=== PATIENT | male | born 1980 | race Caucasian/White ===

== ENCOUNTER 2018-03-11 10:47 | Emergency (ER) | payer OTHER ==
--- NOTE | 2018-03-11 13:04 | RAD REPORT ---
EXAM DESCRIPTION: RAD - Chest Single View - 03/11/2018 12:40 pm CLINICAL HISTORY: Chest pain. COMPARISON: 01/17/2012 FINDINGS: Portable technique limits examination quality. The lungs are grossly clear. The heart is normal in size. No displaced fractures. IMPRESSION: No acute intrathoracic process suspected.
[2018-03-11] MEDS ORDERED: FENTANYL CITR 100 MCG/2 ML ONE (13:16)
[2018-03-11] MEDS ORDERED: ONDANSETRON 4 MG/2 ML VIAL ONE (13:16)
[2018-03-11] MEDS ORDERED: NA CHLORIDE 0.9% 1,000 ML ONE (13:16)
[2018-03-11 13:27] LABS: Bicarbonate 27 mEq/L (21-31); Glucose Level 94 mg/dL (65-120); Lipase 25 U/L (22-51); Potassium 3.7 mEq/L (3.6-5.0); Sodium Level 134 mEq/L (135-145)
[2018-03-11 13:29] LABS: Protime INR 1.03
[2018-03-11 13:34] LABS: ALT/SGPT 19 IU/L (10-60); AST/SGOT 23 IU/L (10-42); Absolute Lymphocytes (CBC) 1.7 K/uL (0.7-4.9); Absolute Monocytes 0.4 K/uL (0.1-1.3); Absolute Neutrophil 2.4 K/uL (1.8-8.0); Albumin 4.5 g/dL (3.2-5.5); Alkaline Phosphatase 79 IU/L (42-121); BUN Blood Urea Nitrogen 7 mg/dL (6-20); Basophils % 0.8 % (0-1.3); Bilirubin Direct < 0.1 mg/dL (0-0.2); Bilirubin Total 0.7 mg/dL (0.3-1.2); Creatine Phosphokinase 128 IU/L (22-269); Eosinophils % 0.9 % (0-4.4); Hematocrit 44.3 % (39.6-49.0); Lymphocytes % 36.7 % (15.3-44.8); MCH 29.7 pg (27.0-35.0); MCV 87.1 fL (80-100); MPV 7.6 fL (7.6-11.3); Magnesium 1.8 mg/dL (1.8-2.5); Monocytes % 9.3 % (3.3-12.3); Protein, Total 7.4 g/dL (6.0-8.3); RBC Red Blood Cell Count 5.09 M/uL (4.33-5.43)
[2018-03-11 13:35] LABS: CKMB Creatine Kinase MB 1.1 ng/ml (0.3-4.0)
--- NOTE | 2018-03-11 14:34 | EKG ---
Test Date: 2018-03-11 Test Time: 12:45:29 Header Set Up Operator: MEERA MEASUREMENT RESULTS: Intervals: Rate: 64 MS: 142 QRSD: 86 QT: 394 QTc: 406 [place]: P: 47 MS: 142 QRS: 35 T: 42 INTERPRETIVE STATEMENTS: Normal sinus rhythm Normal ECG No previous ECG available for comparison Electronically Signed On 03-11-18 14:33:39 CDT by Chico Campuzano
--- NOTE | 2018-03-11 15:10 | RAD REPORT ---
EXAM DESCRIPTION: CTAbdomen Pelvis W Contrast - 03/11/2018 2:44 pm CLINICAL HISTORY: Abdominal pain. Left lower quadrant pain. COMPARISON: None. TECHNIQUE: Biphasic CT imaging of the abdomen and pelvis was performed with 100 ml non-ionic IV cont rast. All CT scans are performed using dose optimization technique as appropriate and may include automated exposure control or mA/KV adjustment according to patient size. FINDINGS: The lung bases are clear. The liver contains a 3.3 cm cyst. No aggressive liver lesion or biliary dilatation. The spleen, pancr eas and adrenal glands are normal. Punctate 2 mm calculus is present in the superior left kidney. Cor tical renal cyst is present on the left measuring 2 cm. No bowel obstruction, free air, free fluid or abscess. The appendix is normal. No evidence of signi ficant lymphadenopathy. No suspicious bony findings. IMPRESSION: No acute intra-abdominal or pelvic finding. Punctate 2 mm left renal calculus without hydronephrosis.
--- NOTE | 2018-03-11 15:33 | EDPHYS ---
Physician Documentation [facility] Name: Ibrahima Hatfield Age: 37 yrs Sex: Male : 1980 Arrival Date: 03/11/2018 Time: 10:48 Bed 16 Private MD: ED Physician Raul Marinelli HPI: 03/11 14:03 This 37 yrs old Male presents to ER via Ambulatory with complaints of braeden Abdominal Pain, Nausea/Vomiting/Diarrhea. 14:03 The patient presents to the emergency department with nausea, vomiting, diarrhea, braeden abdominal pain, of the right lower quadrant and left lower quadrant. Onset: The symptoms/episode began/occurred 3 day(s) ago. Possible causes: unknown. The symptoms are aggravated by nothing. The symptoms are alleviated by remaining still. Associated signs and symptoms: The patient has no apparent associated signs or symptoms. Severity of symptoms: At their worst the symptoms were moderate in the emergency department the symptoms are unchanged. The patient has experienced a previous episode. Historical: - Allergies: 11:03 No Known Allergies; ch - Home Meds: 11:03 sertraline oral oral [Active]; Prazosin Oral [Active]; etotack(anti inflamatory ch prescritpion unknown) [Active]; - PMHx: 11:03 ptsd; ch - PSHx: 11:03 cataracts; R knee; ch - Immunization history:: Adult Immunizations up to date. - Social history:: Smoking status: Patient uses tobacco products, smokes one pack cigarettes per day. Patient/guardian denies using alcohol, street drugs. ROS: 14:04 Constitutional: Negative for fever, chills, and weight loss, Eyes: Negative for injury, braeden pain, redness, and discharge, ENT: Negative for injury, pain, and discharge, Neck: Negative for injury, pain, and swelling, Cardiovascular: Negative for chest pain, palpitations, and edema, Respiratory: Negative for shortness of breath, cough, wheezing, and pleuritic chest pain, Back: Negative for injury and pain, : Negative for injury, bleeding, discharge, and swelling, MS/Extremity: Negative for injury and deformity, Skin: Negative for injury, rash, and discoloration, Neuro: Negative for headache, weakness, numbness, tingling, and seizure, Psych: Negative for depression, anxiety, suicide ideation, homicidal ideation, and hallucinations, Allergy/Immunology: Negative for hives, rash, and allergies, Endocrine: Negative for neck swelling, polydipsia, polyuria, polyphagia, and marked weight changes, Hematologic/Lymphatic: Negative for swollen nodes, abnormal bleeding, and unusual bruising. 14:04 Abdomen/GI: Positive for abdominal pain, nausea and vomiting, diarrhea. Exam: 14:04 Constitutional: This is a well developed, well nourished patient who is awake, alert, braeden and in no acute distress. Head/Face: Normocephalic, atraumatic. Eyes: Pupils equal round and reactive to light, extra-ocular motions intact. Lids and lashes normal. Conjunctiva and sclera are non-icteric and not injected. Cornea within normal limits. Periorbital areas with no swelling, redness, or edema. ENT: Nares patent. No nasal discharge, no septal abnormalities noted. Tympanic membranes are normal and external auditory canals are clear. Oropharynx with no redness, swelling, or masses, exudates, or evidence of obstruction, uvula midline. Mucous membranes moist. Neck: Trachea midline, no thyromegaly or masses palpated, and no cervical lymphadenopathy. Supple, full range of motion without nuchal rigidity, or vertebral point tenderness. No Meningismus. Chest/axilla: Normal chest wall appearance and motion. Nontender with no deformity. No lesions are appreciated. Cardiovascular: Regular rate and rhythm with a normal S1 and S2. No gallops, murmurs, or rubs. Normal PMI, no JVD. No pulse deficits. Respiratory: Lungs have equal breath sounds bilaterally, clear to auscultation and percussion. No rales, rhonchi or wheezes noted. No increased work of breathing, no retractions or nasal flaring. Back: No spinal tenderness. No costovertebral tenderness. Full range of motion. Male : Normal genitalia with no discharge or lesions. Skin: Warm, dry with normal turgor. Normal color with no rashes, no lesions, and no evidence of cellulitis. MS/ Extremity: Pulses equal, no cyanosis. Neurovascular intact. Full, normal range of motion. Neuro: Awake and alert, GCS 15, oriented to person, place, time, and situation. Cranial nerves II-XII grossly intact. Motor strength 5/5 in all extremities. Sensory grossly intact. Cerebellar exam normal. Normal gait. Psych: Awake, alert, with orientation to person, place and time. Behavior, mood, and affect are within normal limits. 14:04 Abdomen/GI: Inspection: abdomen appears normal, Bowel sounds: normal, Palpation: mild abdominal tenderness, moderate abdominal tenderness, in the right lower quadrant and left lower quadrant, Liver: no appreciated palpable abnormalities, Hernia: not appreciated. Vital Signs: 11:03 BP 117 / 86; Pulse 78; Resp 15; Temp 99; Pulse Ox 97% on R/A; Weight 85.28 kg; Height 6 ch ft. 0 in. (182.88 cm); Pain 7/10; 12:25 BP 118 / 76; Pulse 66; Resp 18; Pulse Ox 100% on R/A; rb1 13:55 BP 117 / 74; Pulse 58; Resp 14; Pulse Ox 97% on R/A; mh5 14:50 BP 114 / 76; Pulse 62; Resp 17; Pulse Ox 99% on R/A; rb1 15:10 BP 110 / 63; Pulse 61; Resp 19; Pulse Ox 99% on R/A; rb1 16:20 BP 104 / 62; Pulse 58; Resp 16; Pulse Ox 99% on R/A; mh5 17:14 BP 114 / 72; Pulse 61; Resp 16; Pulse Ox 99% on R/A; mh5 11:03 Body Mass Index 25.50 (85.28 kg, 182.88 cm) ch MDM: 12:17 Patient medically screened. [facility] 14:05 Data reviewed: vital signs, nurses notes, lab test result(s), EKG, radiologic studies. [facility] 03/11 12:25 Order name: Basic Metabolic Panel [facility] 03/11 12:25 Order name: BNP 03/11 12:25 Order name: CBC with Diff 03/11 12:25 Order name: Ckmb 03/11 12:25 Order name: CPK; Complete Time: 14:02 [facility] 03/11 12:25 Order name: LFT's; Complete Time: 14:02 [facility] 03/11 12:25 Order name: Magnesium; Complete Time: 14:02 [facility] 03/11 12:25 Order name: PT-INR; Complete Time: 14:02 [facility] 03/11 12:25 Order name: Ptt, Activated; Complete Time: 14:02 [facility] 03/11 12:25 Order name: Troponin (emerg Dept Use Only); Complete Time: 14:02 [facility] 03/11 12:25 Order name: Lipase; Complete Time: 14:02 [facility] 03/11 12:25 Order name: Urine Culture [facility] 03/11 12:26 Order name: Basic Metabolic Panel; Complete Time: 14:02 [facility] 03/11 12:26 Order name: BNP B-Type Natriuretic Peptide; Complete Time: 14:42 [facility] 03/11 12:25 Order name: XRAY Chest (1 view); Complete Time: 14:02 [facility] 03/11 12:25 Order name: EKG; Complete Time: 12:26 [facility] 03/11 12:25 Order name: Cardiac monitoring; Complete Time: 13:27 [facility] 03/11 12:25 Order name: EKG - Nurse/Tech; Complete Time: 18:10 [facility] 03/11 12:25 Order name: IV Saline Lock; Complete Time: 13:27 [facility] 03/11 12:25 Order name: Labs collected and sent; Complete Time: 13:27 [facility] 03/11 12:25 Order name: O2 Per Protocol; Complete Time: 13:27 [facility] 03/11 12:25 Order name: CT Abd/Pelvis - W/Contrast; Complete Time: 15:30 [facility] 03/11 12:26 Order name: CBC with Automated Diff; Complete Time: 14:02 [facility] 03/11 12:26 Order name: CKMB Creatine Kinase MB; Complete Time: 14:02 [facility] 03/11 14:08 Order name: Urine Dipstick--Ancillary (enter results) 03/11 12:25 Order name: O2 Sat Monitoring; Complete Time: 13:28 [facility] 03/11 12:25 Order name: Urine Dipstick-Ancillary (obtain specimen); Complete Time: 18:09 [facility] Administered Medications: 13:18 Drug: NS 0.9% 1000 ml Route: IV; Rate: 1 bolus; Site: left wrist; rb1 14:25 Follow up: IV Status: Completed infusion rb1 13:18 Drug: Zofran 4 mg Route: IVP; Site: left wrist; rb1 14:03 Follow up: Response: No adverse reaction; Nausea is decreased rb1 13:18 Drug: fentaNYL (PF) 25 mcg Route: IVP; Site: left wrist; rb1 14:03 Follow up: Response: No adverse reaction; Pain is decreased rb1 13:27 Not Given (Not available; provider notified. No new order at this time.): Pepcid 20 mg rb1 IVP once 14:21 Drug: Cipro 400 mg Volume: 200 ml; Route: IVPB; Infused Over: 60 mins; Site: left wrist;rb1 Disposition: 03/11/18 15:32 Discharged to Home. Impression: Abdominal tenderness, Vomiting. - Condition is Stable. - Discharge Instructions: Abdominal Pain, Adult, Food Choices to Help Relieve Diarrhea, Adult, Diarrhea, Kidney Stones, Nausea and Vomiting, Kidney Stones, [id number], Nausea and Vomiting, Ewru-jt-Lhgg, Abdominal Pain, Adult, Mrrb-gu-Noim, Diarrhea, Euon-qj-Gjlo. - Prescriptions for Bentyl 20 mg Oral Tablet - take 1 tablet by ORAL route every 6 hours As needed; 20 tablet. Pepcid 20 mg Oral Tablet - take 1 tablet by ORAL route every 12 hours for 10 days; 20 tablet. Zofran 4 mg Oral Tablet - take 1 tablet by ORAL route every 12 hours As needed; 20 tablet. - Medication Reconciliation Form, Thank You Letter, Antibiotic Education, Prescription Opioid Use, Work release form form. - Follow up: Private Physician; When: 2 - 3 days; Reason: Recheck today's complaints, Continuance of care, Re-evaluation by your physician. - Problem is new. - Symptoms have improved. Signatures: Dispatcher [employer] Luz Thompson, RN RN Raul Newman MD MD cha Barber, Rebecca, RN RN rb1
--- NOTE | 2018-03-11 15:33 | ER ---
Nurse's Notes [facility] Name: Ibrahima Hatfield Age: 37 yrs Sex: Male : 1980 Arrival Date: 03/11/2018 Time: 10:48 Bed 16 Private MD: Diagnosis: Abdominal tenderness;Vomiting Presentation: 03/11 10:59 Presenting complaint: Patient states: Saturday i started getting sick, NVD. I started ch getting pain in my LLQ abdomen, the pain radiates into my groin. last bm was yesterday. Transition of care: patient was not received from another setting of care. Onset of symptoms was March 10, 2018. Initial Sepsis Screen: Does the patient meet any 2 criteria? No. Patient's initial sepsis screen is negative. Does the patient have a suspected source of infection? No. Patient's initial sepsis screen is negative. Care prior to arrival: None. 10:59 Method Of Arrival: Ambulatory 10:59 Acuity: FELI 3 ch Triage Assessment: 11:03 General: Appears in no apparent distress. comfortable, Behavior is calm, cooperative, ch appropriate for age. Pain: Complains of pain in left lower quadrant Pain currently is 7 out of 10 on a pain scale. GI: Reports diarrhea, nausea, vomiting. Historical: - Allergies: 11:03 No Known Allergies; ch - Home Meds: 11:03 sertraline oral oral [Active]; Prazosin Oral [Active]; etotack(anti inflamatory ch prescritpion unknown) [Active]; - PMHx: 11:03 ptsd; ch - PSHx: 11:03 cataracts; R knee; ch - Immunization history:: Adult Immunizations up to date. - Social history:: Smoking status: Patient uses tobacco products, smokes one pack cigarettes per day. Patient/guardian denies using alcohol, street drugs. Screenin:20 Abuse screen: Denies threats or abuse. Nutritional screening: No deficits noted. rb1 Tuberculosis screening: No symptoms or risk factors identified. Fall Risk None identified. Assessment: 12:20 General: Appears uncomfortable, Behavior is calm, cooperative, Denies fever. Pain: rb1 Complains of pain in left lower quadrant Pain currently is 9 out of 10 on a pain scale. Pain began Saturday. Neuro: Level of Consciousness is awake, alert, obeys commands, Oriented to person, place, time, situation. Cardiovascular: Capillary refill < 3 seconds is brisk in bilateral fingers. Respiratory: Airway is patent Respiratory effort is even, unlabored, Respiratory pattern is regular, symmetrical. GI: Bowel sounds present X 4 quads. Abd is soft Abdomen is tender to palpation in left lower quadrant Reports diarrhea, nausea, vomiting. : No signs and/or symptoms were reported regarding the genitourinary system. Derm: Skin is pink, warm \T\ dry. Musculoskeletal: Range of motion: intact in all extremities. 12:59 Reassessment: Called CT to let them know pt. finished contrast. rb1 13:18 Reassessment: Patient appears in no apparent distress at this time. Patient and/or rb1 family updated on plan of care and expected duration. Pain level reassessed. Patient is alert, oriented x 3, equal unlabored respirations, skin warm/dry/pink. pain 8/10. 14:17 Reassessment: Patient appears in no apparent distress at this time. No changes from rb1 previously documented assessment. 15:15 Reassessment: Patient appears in no apparent distress at this time. Patient and/or rb1 family updated on plan of care and expected duration. Pain level reassessed. Patient is alert, oriented x 3, equal unlabored respirations, skin warm/dry/pink. 16:11 Reassessment: Patient appears in no apparent distress at this time. No changes from rb1 previously documented assessment. pt. is watching tv. call light is within reach. 17:09 Reassessment: Patient appears in no apparent distress at this time. Patient and/or rb1 family updated on plan of care and expected duration. Pain level reassessed. Patient is alert, oriented x 3, equal unlabored respirations, skin warm/dry/pink. Vital Signs: 11:03 BP 117 / 86; Pulse 78; Resp 15; Temp 99; Pulse Ox 97% on R/A; Weight 85.28 kg; Height 6 ch ft. 0 in. (182.88 cm); Pain 7/10; 12:25 BP 118 / 76; Pulse 66; Resp 18; Pulse Ox 100% on R/A; rb1 13:55 BP 117 / 74; Pulse 58; Resp 14; Pulse Ox 97% on R/A; mh5 14:50 BP 114 / 76; Pulse 62; Resp 17; Pulse Ox 99% on R/A; rb1 15:10 BP 110 / 63; Pulse 61; Resp 19; Pulse Ox 99% on R/A; rb1 16:20 BP 104 / 62; Pulse 58; Resp 16; Pulse Ox 99% on R/A; mh5 17:14 BP 114 / 72; Pulse 61; Resp 16; Pulse Ox 99% on R/A; mh5 11:03 Body Mass Index 25.50 (85.28 kg, 182.88 cm) ED Course: 10:48 Patient arrived in ED. sb2 11:01 Triage completed. ch 11:03 Arm band placed on left wrist. Patient placed in waiting room. ch 12:17 Raul Marinelli MD is Attending Physician. bra[place] 12:20 Patient has correct armband on for positive identification. Bed in low position. Call rb1 light in reach. Side rails up X 1. Pulse ox on. NIBP on. 12:39 X-ray completed. Portable x-ray completed in exam room. Patient tolerated procedure mh1 well. 12:40 XRAY Chest (1 view) In Process Unspecified. EDMS 12:52 EKG done, by monitor technician. reviewed by Raul Marinelli MD. dt2 12:59 Marielena Christensen, RN is Primary Nurse. rb1 13:00 Inserted saline lock: 18 gauge in left forearm, using aseptic technique. Blood ch collected. 14:43 CT completed. Patient tolerated procedure well. Patient moved to CT via wheelchair. sj Patient moved back from CT. 14:43 CT Abd/Pelvis - W/Contrast In Process Unspecified. EDMS 17:41 No provider procedures requiring assistance completed. IV discontinued, intact, rb1 bleeding controlled, No redness/swelling at site. Pressure dressing applied. Administered Medications: 13:18 Drug: NS 0.9% 1000 ml Route: IV; Rate: 1 bolus; Site: left wrist; rb1 14:25 Follow up: IV Status: Completed infusion rb1 13:18 Drug: Zofran 4 mg Route: IVP; Site: left wrist; rb1 14:03 Follow up: Response: No adverse reaction; Nausea is decreased rb1 13:18 Drug: fentaNYL (PF) 25 mcg Route: IVP; Site: left wrist; rb1 14:03 Follow up: Response: No adverse reaction; Pain is decreased rb1 13:27 Not Given (Not available; provider notified. No new order at this time.): Pepcid 20 mg rb1 IVP once 14:21 Drug: Cipro 400 mg Volume: 200 ml; Route: IVPB; Infused Over: 60 mins; Site: left wrist;rb1 Outcome: 15:32 Discharge ordered by . bra[place]en 17:41 Patient left the ED. rb1 17:41 Discharged to home ambulatory. rb1 17:41 Condition: stable 17:41 Discharge instructions given to patient, Instructed on discharge instructions, follow up and referral plans. medication usage, Demonstrated understanding of instructions, follow-up care, medications, Prescriptions given X 3. Signatures: Dispatcher [employer] Luz Thompson, RN RN Raul Marinelli MD MD cha Harvey, Martha mh1 Johny, Marielena Young RN RN rb1 William, Ashley 5 Salome Coreas2 Dorina Talbert2
[2018-03-11 16:08] LABS: Urine Blood TRACE (NEG); Urine Glucose NEGATIVE (NEG); Urine Protein NEGATIVE (NEG); Urine Specific Gravity 1.015 (1.005-1.030)
[2018-03-11 17:49] VITALS: TEMP 99
[2018-03-11 17:51] VITALS: O2SAT 99
[2018-03-11 17:53] VITALS: BP 114/72
== END 2018-03-11 17:41 | disposition home or self-care (01) ==
LOC: ER 10:47
DX: R11.2 Nausea with vomiting, unspecified (principal); F43.10 Post-traumatic stress disorder, unspecified; F17.210 Nicotine dependence, cigarettes, uncomplicated
CPT/HCPCS: 36415; 71045; 74177; 80048; 80076; 81003; 82550; 82553; 83690; 83735; 83880; 84484; 85025; 85610; 85730; 87086; 87088; 93005; 96361; 96374; 96375; 99285; J2405; J3010; J7030; Q9967

== ENCOUNTER 2019-03-29 12:11 | Emergency (ER) | payer OTHER ==
--- NOTE | 2019-03-29 13:45 | RAD REPORT ---
EXAM DESCRIPTION: RAD - Hand Right 3 View - 03/29/2019 1:37 pm CLINICAL HISTORY: PAIN Fall, pain COMPARISON: <Comparisons> FINDINGS: Nondisplaced fracture involving the base of third and fourth metacarpals. Small avulsion f racture also suspected base of the fifth metacarpal. Moderate adjacent soft tissue swelling. No dislo cation evident.
--- NOTE | 2019-03-29 14:30 | EDPHYS ---
Physician Documentation [facility] Name: Ibrahima Hatfield Age: 38 yrs Sex: Male : 1980 Arrival Date: 03/29/2019 Time: 12:16 Bed 24 Private MD: ED Physician Jarrod Ley HPI: 03/29 14:22 This 38 yrs old Male presents to ER via Ambulatory with complaints of Injury pm1 To Right Hand. 14:22 The patient or guardian reports pain. The complaints affect the right hand. Context: pm1 The problem was sustained outdoors, resulted from a fall, while walking. Onset: The symptoms/episode began/occurred 2 day(s) ago. Modifying factors: The symptoms are alleviated by splinting, the symptoms are aggravated by movement. Associated signs and symptoms: Pertinent negatives: cyanosis distally, decreased sensation distally, numbness distally, tingling distally. The patient has not experienced similar symptoms in the past. The patient has not recently seen a physician. Patient slipped while holding bucket and it resulted in him punching the ground with hit right hand in a fist. Pain to third to fifth metacarpal bases that he reported reducing after injury. Historical: - Allergies: 12:37 No Known Allergies; la1 - PMHx: 12:37 PTSD; la1 - Immunization history:: Adult Immunizations up to date. - Social history:: Smoking status: Patient uses tobacco products, smokes one pack cigarettes per day. - Ebola Screening: : No symptoms or risks identified at this time. ROS: 14:22 Constitutional: Negative for fever, chills, and weight loss, Eyes: Negative for injury, pm1 pain, redness, and discharge, ENT: Negative for injury, pain, and discharge, Neck: Negative for injury, pain, and swelling, Cardiovascular: Negative for chest pain, palpitations, and edema, Respiratory: Negative for shortness of breath, cough, wheezing, and pleuritic chest pain, Abdomen/GI: Negative for abdominal pain, nausea, vomiting, diarrhea, and constipation, Back: Negative for injury and pain, : Negative for injury, bleeding, discharge, and swelling. 14:22 Skin: Negative for injury, rash, and discoloration, Neuro: Negative for headache, weakness, numbness, tingling, and seizure. 14:22 MS/extremity: Positive for pain, swelling, of the right hand, Negative for decreased range of motion. Exam: 14:22 Constitutional: This is a well developed, well nourished patient who is awake, alert, pm1 and in no acute distress. Head/Face: Normocephalic, atraumatic. Eyes: Pupils equal round and reactive to light, extra-ocular motions intact. Lids and lashes normal. Conjunctiva and sclera are non-icteric and not injected. Cornea within normal limits. Periorbital areas with no swelling, redness, or edema. ENT: Nares patent. No nasal discharge, no septal abnormalities noted. Tympanic membranes are normal and external auditory canals are clear. Oropharynx with no redness, swelling, or masses, exudates, or evidence of obstruction, uvula midline. Mucous membranes moist. Neck: Trachea midline, no thyromegaly or masses palpated, and no cervical lymphadenopathy. Supple, full range of motion without nuchal rigidity, or vertebral point tenderness. No Meningismus. Chest/axilla: Normal chest wall appearance and motion. Nontender with no deformity. No lesions are appreciated. Cardiovascular: Regular rate and rhythm with a normal S1 and S2. No gallops, murmurs, or rubs. Normal PMI, no JVD. No pulse deficits. Respiratory: Lungs have equal breath sounds bilaterally, clear to auscultation and percussion. No rales, rhonchi or wheezes noted. No increased work of breathing, no retractions or nasal flaring. Abdomen/GI: Soft, non-tender, with normal bowel sounds. No distension or tympany. No guarding or rebound. No evidence of tenderness throughout. Back: No spinal tenderness. No costovertebral tenderness. Full range of motion. Skin: Warm, dry with normal turgor. Normal color with no rashes, no lesions, and no evidence of cellulitis. 14:22 Musculoskeletal/extremity: Extremities: grossly normal except: noted in the base of third to fifth metacarpals of right hand: swelling, tenderness. Vital Signs: 12:37 BP 127 / 74; Pulse 71; Resp 16; Temp 98.4; Pulse Ox 98% on R/A; Weight 81.65 kg; Height la1 6 ft. 0 in. (182.88 cm); 12:37 Body Mass Index 24.41 (81.65 kg, 182.88 cm) la1 MDM: 12:39 Patient medically screened. pm1 14:26 Data reviewed: vital signs. Data interpreted: Pulse oximetry: on room air is 98 %. pm1 Interpretation: normal. Counseling: I had a detailed discussion with the patient and/or guardian regarding: the historical points, exam findings, and any diagnostic results supporting the discharge/admit diagnosis, radiology results, the need for outpatient follow up, to return to the emergency department if symptoms worsen or persist or if there are any questions or concerns that arise at home. 03/29 12:38 Order name: Hand Right 3 View XRAY; Complete Time: 13:49 la1 03/29 13:54 Order name: Volar Wrist Splint; Complete Time: 14:16 la1 03/29 14:31 Order name: Sling; Complete Time: 14:37 pm1 Administered Medications: No medications were administered Disposition: 03/29/19 14:29 Discharged to Home. Impression: Nondisplaced fracture of base of fourth metacarpal bone, right hand, Nondisplaced fracture of base of third metacarpal bone, right hand, Avulsion fracture of base of fifth metacarpal bone, right hand. - Condition is Stable. - Discharge Instructions: Cast or Splint Care, Adult, Metacarpal Fracture, How to Use a Sling. - Prescriptions for Tylenol- Codeine #3 300-30 mg Oral Tablet - take 2 tablets by ORAL route every 6 hours As needed; 20 tablet. - Medication Reconciliation Form, Thank You Letter, Antibiotic Education, Prescription Opioid Use form. - Follow up: Emergency Department; When: As needed; Reason: Worsening of condition. Follow up: Private Physician; When: 2 - 3 days; Reason: Recheck today's complaints, Continuance of care, Re-evaluation by your physician. - Problem is new. - Symptoms have improved. Addendum: 04/02/2019 20:45 Co-signature as Attending Physician, Jarrod Ley MD. g s Signatures: Dispatcher [employer] EDMS Reyes Tejada RN RN la1 Jeffrey Wheeler, INTERNAL CONTROL SPECIALIST INTERNAL CONTROL SPECIALIST pm1 Jarrod Ley MD MD Corrections: (The following items were deleted from the chart) 03/29 14:38 14:29 03/29/2019 14:29 Discharged to Home. Impression: Nondisplaced fracture of base of la1 fourth metacarpal bone, right hand; Nondisplaced fracture of base of third metacarpal bone, right hand; Avulsion fracture of base of fifth metacarpal bone, right hand. Condition is Stable. Forms are Medication Reconciliation Form, Thank You Letter, Antibiotic Education, Prescription Opioid Use. Follow up: Emergency Department; When: As needed; Reason: Worsening of condition. Follow up: Private Physician; When: 2 - 3 days; Reason: Recheck today's complaints, Continuance of care, Re-evaluation by your physician. Problem is new. Symptoms have improved. pm1
--- NOTE | 2019-03-29 14:30 | ER ---
Nurse's Notes [facility] Name: Ibrahima Hatfield Age: 38 yrs Sex: Male : 1980 Arrival Date: 03/29/2019 Time: 12:16 Bed 24 Private MD: Diagnosis: Nondisplaced fracture of base of fourth metacarpal bone, right hand;Nondisplaced fracture of base of third metacarpal bone, right hand;Avulsion fracture of base of fifth metacarpal bone, right hand Presentation: 03/29 12:35 Presenting complaint: Patient states: three days ago I fell on to my right hand and I la1 think I broke it, pt denies pain in right wrist. Transition of care: patient was not received from another setting of care. Complicating Factors: There are no complicating factors for this patient. Onset of symptoms was March 29, 2019. Risk Assessment: Do you want to hurt yourself or someone else? Patient reports no desire to harm self or others. Initial Sepsis Screen: Does the patient meet any 2 criteria? No. Patient's initial sepsis screen is negative. Does the patient have a suspected source of infection? No. Patient's initial sepsis screen is negative. Care prior to arrival: None. 12:35 Method Of Arrival: Ambulatory la1 12:35 Acuity: FELI 4 la1 Historical: - Allergies: 12:37 No Known Allergies; la1 - PMHx: 12:37 PTSD; la1 - Immunization history:: Adult Immunizations up to date. - Social history:: Smoking status: Patient uses tobacco products, smokes one pack cigarettes per day. - Ebola Screening: : No symptoms or risks identified at this time. Screenin:39 Abuse screen: Denies threats or abuse. Nutritional screening: No deficits noted. la1 Tuberculosis screening: No symptoms or risk factors identified. Fall Risk None identified. Assessment: 12:38 General: Appears in no apparent distress. Behavior is calm, cooperative. Pain: Denies la1 pain. Neuro: Level of Consciousness is awake, alert, obeys commands. Cardiovascular: Capillary refill < 3 seconds is brisk in bilateral fingers Patient's skin is warm and dry. Respiratory: Airway is patent Respiratory effort is even, unlabored. GI: No signs and/or symptoms were reported involving the gastrointestinal system. : No signs and/or symptoms were reported regarding the genitourinary system. Musculoskeletal: Range of motion: intact in all extremities, Swelling present in right hand. 14:28 Reassessment: Patient appears in no apparent distress at this time. No changes from la1 previously documented assessment. Patient and/or family updated on plan of care and expected duration. Pain level reassessed. 14:29 Musculoskeletal: Circulation, motion, and sensation intact. Range of motion: intact in la1 all extremities. Vital Signs: 12:37 BP 127 / 74; Pulse 71; Resp 16; Temp 98.4; Pulse Ox 98% on R/A; Weight 81.65 kg; Height la1 6 ft. 0 in. (182.88 cm); 12:37 Body Mass Index 24.41 (81.65 kg, 182.88 cm) la1 ED Course: 12:16 Patient arrived in ED. tw3 12:30 Jeffrey Wheeler NP is PHCP. pm1 12:30 Jarrod Ley MD is Attending Physician. pm1 12:35 Reyes Tejada RN is Primary Nurse. la1 12:36 Triage completed. la1 12:38 Arm band placed on left wrist. la1 12:39 Call light in reach. la1 13:37 Hand Right 3 View XRAY In Process Unspecified. EDMS 14:16 Orthoglass splint: Volar splint applied on right arm. lt1 14:37 No provider procedures requiring assistance completed. Patient did not have IV access la1 during this emergency room visit. Administered Medications: No medications were administered Outcome: 14:29 Discharge ordered by . pm1 14:37 Discharged to home ambulatory. la1 14:37 Condition: stable 14:37 Discharge instructions given to patient, Instructed on discharge instructions, follow up and referral plans. medication usage, Demonstrated understanding of instructions, follow-up care, medications, Prescriptions given X 1. 14:38 Patient left the ED. la1 Signatures: Dispatcher [employer] EDMS Reyes Tejada RN RN la1 Jeffrey Wheeler NP DRIVE THRU ORDER TAKER pm1 Dorothy Kellogg tw3 Michelle Vega lt1
[2019-03-29 15:45] VITALS: BP 127/74; TEMP 98.4; O2SAT 98
== END 2019-03-29 14:38 | disposition home or self-care (01) ==
LOC: ER 12:11
DX: S62.344A Nondisplaced fracture of base of fourth metacarpal bone, right hand, initial encounter for closed fracture (principal); S62.342A Nondisplaced fracture of base of third metacarpal bone, right hand, initial encounter for closed fracture; S62.346A Nondisplaced fracture of base of fifth metacarpal bone, right hand, initial encounter for closed fracture; W19.XXXA Unspecified fall, initial encounter; Y93.01 Activity, walking, marching and hiking; Y92.89 Other specified places as the place of occurrence of the external cause; F17.210 Nicotine dependence, cigarettes, uncomplicated
CPT/HCPCS: 99283

== ENCOUNTER 2019-12-13 11:50 | Emergency (ER) | payer BC, OTHER ==
--- OUTSIDE RECORDS SUMMARY | 2019-12-13 11:52 | XMS REPORT ---
:1980 Author Organization [facility] Address [address] [place] [address] [address] [place] [address] Care Team Providers Name Role Phone Unavailable Unavailable Unavailable Problems This patient has no known problems. Allergies, Adverse Reactions, Alerts This patient has no known allergies or adverse reactions. Medications This patient has no known medications.
[2019-12-13 12:18] LABS: Absolute Lymphocytes (CBC) 1.5 K/uL (0.7-4.9); Basophils % 0.5 % (0-1.3); Hematocrit 42.7 % (39.6-49.0); Lymphocytes % 11.4 % (15.3-44.8); MPV 7.4 fL (7.6-11.3); RBC Red Blood Cell Count 4.82 M/uL (4.33-5.43)
[2019-12-13] MEDS ORDERED: ONDANSETRON 4 MG/2 ML VIAL ONE (12:20)
[2019-12-13] MEDS ORDERED: KETOROLAC 30 MG/ML INJ ONE (12:20)
[2019-12-13] MEDS ORDERED: CEFTRIAXONE/SWI 1gm 1 GM/10 ML SYR ONE (12:29)
[2019-12-13 12:40] LABS: Albumin 3.9 g/dL (3.4-5.0); Bilirubin Direct 0.2 mg/dL (0-0.2); Bilirubin Total 0.6 mg/dL (0.2-1.0); Potassium 3.9 mmol/L (3.5-5.1); Protein, Total 6.7 g/dL (6.4-8.2)
--- NOTE | 2019-12-13 12:58 | RAD REPORT ---
EXAM DESCRIPTION: CT - Stone Protocol - 12/13/2019 12:44 pm CLINICAL HISTORY: ABD PAIN COMPARISON: Abdomen Pelvis W Contrast dated 03/11/2018 TECHNIQUE: Axial 5 mm thick images were obtained without oral or IV contrast. The excry-bb-eyld span s the entirety of the system including uppermost abdomen and lung bases. All CT scans are performed using dose optimization technique as appropriate and may include automated exposure control or mA/KV adjustment according to patient size. FINDINGS: No hydronephrosis is present. There is a 5 millimeter calcification laying on the dependen t portion of the left renal pelvis. Patient has a normal variant extrarenal pelvis on the left. No ot her calculi in the collecting system of either kidney. Patient has a 2.4 centimeter exophytic low-den sity mass projecting from the lateral margin of the left kidney. This measures 18 Hounsfield units. C yst characteristics were seen on the 2018 study. This cyst has enlarged slightly. No suspicious renal masses. Isodense masses and pyelonephritis are not excluded on a stone protocol CT scan. Urinary skip dder is contracted. No significant adrenal finding. Imaged portions of the liver, spleen and pancreas show no suspicious findings on non-contrast imaging . No gallbladder or biliary tree abnormality identified. No suspicious bowel findings. Appendix is normal. No active bowel process seen. No hernia, mass or bulky lymphadenopathy noted. No free air, free fluid or inflammatory stranding. No significant bony abnormality. IMPRESSION: A 5 mm nonobstructing calculus is layering along the dependent portion of the left renal pelvis. No hydronephrosis or obstructing calculus. Isodense masses and pyelonephritis are not excluded on stone protocol technique. Remainder the study, as detailed above, is without acute finding.
[2019-12-13 13:00] LABS: Urine Blood 3+ (NEG); Urine Glucose NEGATIVE (NEG); Urine Protein 2+ (NEG); Urine Specific Gravity 1.025 (1.005-1.030)
[2019-12-13] MEDS ORDERED: TAMSULOSIN 0.4 MG SR CAP ONE (13:11)
--- NOTE | 2019-12-13 13:25 | EDPHYS ---
Physician Documentation [facility] Name: Ibrahima Hatfield Age: 38 yrs Sex: Male : 1980 Arrival Date: 12/13/2019 Time: 11:54 Bed 24 Private MD: CHRIS Physician Raul Marinelli HPI: 12/13 12:56 This 38 yrs old Male presents to ER via Ambulatory with complaints of braeden Abdominal Pain, Vomiting. 12:56 The patient presents to the emergency department with nausea, vomiting, that is braeden continuous. 12:56 The patient presents with abdominal pain in the left lower quadrant. Onset: The braeden symptoms/episode began/occurred just prior to arrival, this morning. Onset: The symptoms/episode began/occurred this morning. Possible causes: unknown. Associated signs and symptoms: Pertinent positives: abdominal pain, nausea, vomiting. Historical: - Allergies: 11:58 No Known Allergies; aj1 - Home Meds: 11:58 None [Active]; aj1 - PMHx: 11:58 PTSD; aj1 - PSHx: 11:58 Knee surgery; aj1 - Immunization history:: Flu vaccine is not up to date. - Coronavirus screen:: The patient has NOT traveled to [place], [place], or [place] in the past 14 days. - Social history:: Smoking status: Patient reports the use of cigarette tobacco products, smokes one pack cigarettes per day. - Family history:: not pertinent. - Ebola Screening: : Patient denies travel to an Ebola-affected area in the 21 days before illness onset. ROS: 12:56 Constitutional: Negative for fever, chills, and weight loss, Eyes: Negative for injury, braeden pain, redness, and discharge, ENT: Negative for injury, pain, and discharge, Neck: Negative for injury, pain, and swelling, Cardiovascular: Negative for chest pain, palpitations, and edema, Respiratory: Negative for shortness of breath, cough, wheezing, and pleuritic chest pain, Back: Negative for injury and pain, : Negative for injury, bleeding, discharge, and swelling, MS/Extremity: Negative for injury and deformity, Skin: Negative for injury, rash, and discoloration, Neuro: Negative for headache, weakness, numbness, tingling, and seizure, Psych: Negative for depression, anxiety, suicide ideation, homicidal ideation, and hallucinations, Allergy/Immunology: Negative for hives, rash, and allergies, Endocrine: Negative for neck swelling, polydipsia, polyuria, polyphagia, and marked weight changes, Hematologic/Lymphatic: Negative for swollen nodes, abnormal bleeding, and unusual bruising. 12:56 Abdomen/GI: Positive for abdominal pain, abdominal cramps, of the anterior aspect of left lateral abdomen, posterior aspect of left lateral abdomen and left lower quadrant. Exam: 12:56 Constitutional: This is a well developed, well nourished patient who is awake, alert, braeden and in no acute distress. Head/Face: Normocephalic, atraumatic. Eyes: Pupils equal round and reactive to light, extra-ocular motions intact. Lids and lashes normal. Conjunctiva and sclera are non-icteric and not injected. Cornea within normal limits. Periorbital areas with no swelling, redness, or edema. ENT: Nares patent. No nasal discharge, no septal abnormalities noted. Tympanic membranes are normal and external auditory canals are clear. Oropharynx with no redness, swelling, or masses, exudates, or evidence of obstruction, uvula midline. Mucous membranes moist. Neck: Trachea midline, no thyromegaly or masses palpated, and no cervical lymphadenopathy. Supple, full range of motion without nuchal rigidity, or vertebral point tenderness. No Meningismus. Chest/axilla: Normal chest wall appearance and motion. Nontender with no deformity. No lesions are appreciated. Cardiovascular: Regular rate and rhythm with a normal S1 and S2. No gallops, murmurs, or rubs. Normal PMI, no JVD. No pulse deficits. Respiratory: Lungs have equal breath sounds bilaterally, clear to auscultation and percussion. No rales, rhonchi or wheezes noted. No increased work of breathing, no retractions or nasal flaring. Abdomen/GI: Soft, non-tender, with normal bowel sounds. No distension or tympany. No guarding or rebound. No evidence of tenderness throughout. Back: No spinal tenderness. No costovertebral tenderness. Full range of motion. Male : Normal genitalia with no discharge or lesions. Skin: Warm, dry with normal turgor. Normal color with no rashes, no lesions, and no evidence of cellulitis. MS/ Extremity: Pulses equal, no cyanosis. Neurovascular intact. Full, normal range of motion. Neuro: Awake and alert, GCS 15, oriented to person, place, time, and situation. Cranial nerves II-XII grossly intact. Motor strength 5/5 in all extremities. Sensory grossly intact. Cerebellar exam normal. Normal gait. Psych: Awake, alert, with orientation to person, place and time. Behavior, mood, and affect are within normal limits. Vital Signs: 11:58 BP 130 / 77; Pulse 76; Resp 18; Temp 97.2; Pulse Ox 99% on R/A; Weight 81.65 kg (R); aj1 Height 5 ft. 11 in. (180.34 cm) (R); Pain 10/10; 12:30 BP 110 / 65; Pulse 70; Resp 18; Pulse Ox 100% on R/A; mg2 13:30 BP 103 / 76; Pulse 71; Resp 18; Temp 98; Pulse Ox 100% on R/A; mg2 11:58 Body Mass Index 25.10 (81.65 kg, 180.34 cm) aj1 MDM: 12:01 Patient medically screened. [facility] 12:57 Data reviewed: vital signs, nurses notes, lab test result(s), radiologic studies, [facility] scan. 12/13 12:02 Order name: Basic Metabolic Panel; Complete Time: 13:20 mg2 12/13 12:02 Order name: CBC with Diff; Complete Time: 13:20 mg2 12/13 12:02 Order name: Creatinine for Radiology; Complete Time: 13:20 mg2 12/13 12:02 Order name: Hepatic Function; Complete Time: 13:20 mg2 12/13 12:02 Order name: Lipase; Complete Time: 13:20 mg2 12/13 12:16 Order name: Urine Culture [facility] 12/13 12:15 Order name: CT Stone Protocol; Complete Time: 13:20 braeden 12/13 12:52 Order name: Urine Dipstick--Ancillary (enter results); Complete Time: 13:20 ms 12/13 12:02 Order name: IV Saline Lock; Complete Time: 12:12 mg2 12/13 12:02 Order name: Labs collected and sent; Complete Time: 12:12 mg2 12/13 12:02 Order name: Urine Dipstick-Ancillary (obtain specimen); Complete Time: 12:20 mg2 Administered Medications: 12:20 Drug: Zofran 4 mg Route: IVP; Site: right antecubital; mg2 13:49 Follow up: Response: No adverse reaction mg2 12:20 Drug: TORadol 30 mg Route: IVP; Site: right antecubital; mg2 13:20 Follow up: Response: No adverse reaction; Marked relief of symptoms mg2 12:31 Drug: Rocephin 1 grams Route: IV; Rate: per protocol; Site: right antecubital; mg2 13:49 Follow up: Response: No adverse reaction; IV Status: Completed infusion mg2 13:12 Drug: Flomax 0.4 mg Route: PO; mg2 13:49 Follow up: Response: No adverse reaction mg2 13:48 Drug: morphine 4 mg Route: IVP; Site: right antecubital; mg2 13:49 Follow up: Response: No adverse reaction; Medication administered at discharge. mg2 13:48 Drug: Cipro 500 mg Route: PO; mg2 13:49 Follow up: Response: No adverse reaction; Medication administered at discharge. mg2 Disposition: 12/13/19 13:24 Discharged to Home. Impression: Hydronephrosis with renal and ureteral calculous obstruction. - Condition is Stable. - Discharge Instructions: Kidney Stones, Kidney Stones, [id number], Hydronephrosis, Dietary Guidelines to Help Prevent Kidney Stones. - Prescriptions for Tylenol- Codeine #3 300-30 mg Oral Tablet - take 2 tablet by ORAL route every 6 hours As needed; 30 tablet. Zofran 4 mg Oral Tablet - take 1 tablet by ORAL route every 12 hours As needed; 20 tablet. Flomax 0.4 mg Oral Capsule, Sust. Release 24 hr - take 1 capsule by ORAL route once daily 1/2 hour following the same meal each day; 30 capsule. Cipro 500 mg Oral Tablet - take 1 tablet by ORAL route every 12 hours for 7 days; 14 tablet. - Medication Reconciliation Form, Thank You Letter, Antibiotic Education, Prescription Opioid Use, Work release form form. - Follow up: Private Physician; When: 2 - 3 days; Reason: Recheck today's complaints, Continuance of care, Re-evaluation by your physician. Follow up: Smita Cook; When: 2 - 3 days; Reason: Recheck today's complaints, Re-evaluation by your physician. - Problem is new. - Symptoms have improved. Signatures: Dispatcher [employer] Connie Baer RN RN aj1 Raul Marinelli MD MD cha Gardose, Michele, RN RN mg2 Corrections: (The following items were deleted from the chart) 13:51 13:24 12/13/2019 13:24 Discharged to Home. Impression: Hydronephrosis with renal and mg2 ureteral calculous obstruction. Condition is Stable. Discharge Instructions: Kidney Stones, Kidney Stones, [id number], Hydronephrosis, Dietary Guidelines to Help Prevent Kidney Stones. Prescriptions for Tylenol-Codeine #3 300-30 mg Oral Tablet - take 2 tablet by ORAL route every 6 hours As needed; 30 tablet, Zofran 4 mg Oral Tablet - take 1 tablet by ORAL route every 12 hours As needed; 20 tablet, Flomax 0.4 mg Oral Capsule, Sust. Release 24 hr - take 1 capsule by ORAL route once daily 1/2 hour following the same meal each day; 30 capsule, Cipro 500 mg Oral Tablet - take 1 tablet by ORAL route every 12 hours for 7 days; 14 tablet. and Forms are Medication Reconciliation Form, Thank You Letter, Antibiotic Education, Prescription Opioid Use. Follow up: Private Physician; When: 2 - 3 days; Reason: Recheck today's complaints, Continuance of care, Re-evaluation by your physician. Follow up: Smita Cook; When: 2 - 3 days; Reason: Recheck today's complaints, Re-evaluation by your physician. Problem is new. Symptoms have improved. braeden
--- NOTE | 2019-12-13 13:25 | ER ---
Nurse's Notes [facility] Name: Ibrahima Hatfield Age: 38 yrs Sex: Male : 1980 Arrival Date: 12/13/2019 Time: 11:54 Bed 24 Private MD: Diagnosis: Hydronephrosis with renal and ureteral calculous obstruction Presentation: 12/13 11:55 Presenting complaint: Patient states: "I got abdominal pain its sharp pain on the left aj1 side, it feels like pressure on my kidney" Patient also reports pain to left lower back. Reports N/V. Denies diarrhea, fever. Reports that the pain started an hour ago. Reports urinary frequency. Transition of care: patient was not received from another setting of care. Onset of symptoms was December 13, 2019. Risk Assessment: Do you want to hurt yourself or someone else? Patient reports no desire to harm self or others. Initial Sepsis Screen: Does the patient meet any 2 criteria? No. Patient's initial sepsis screen is negative. Does the patient have a suspected source of infection? Yes: Acute abdominal pain. Care prior to arrival: None. 11:55 Method Of Arrival: Ambulatory aj1 11:55 Acuity: FELI 3 aj1 Triage Assessment: 11:58 General: Appears in no apparent distress. uncomfortable, Behavior is calm, cooperative, aj1 appropriate for age. Pain: Complains of pain in left low back and left lower quadrant. Neuro: Level of Consciousness is awake, alert, obeys commands. Cardiovascular: Patient's skin is warm and dry. Respiratory: Airway is patent Respiratory effort is even, unlabored, Respiratory pattern is regular, symmetrical. GI: Reports nausea, vomiting, Patient currently denies diarrhea. : Reports urinary frequency. Historical: - Allergies: 11:58 No Known Allergies; aj1 - Home Meds: 11:58 None [Active]; aj1 - PMHx: 11:58 PTSD; aj1 - PSHx: 11:58 Knee surgery; aj1 - Immunization history:: Flu vaccine is not up to date. - Coronavirus screen:: The patient has NOT traveled to [place], [place], or [place] in the past 14 days. - Social history:: Smoking status: Patient reports the use of cigarette tobacco products, smokes one pack cigarettes per day. - Family history:: not pertinent. - Ebola Screening: : Patient denies travel to an Ebola-affected area in the 21 days before illness onset. Screenin:21 Abuse screen: Denies threats or abuse. Denies injuries from another. Nutritional mg2 screening: No deficits noted. Tuberculosis screening: No symptoms or risk factors identified. Fall Risk IV access (20 points). Assessment: 12:21 General: Appears in no apparent distress. comfortable, Behavior is calm, cooperative. mg2 Pain: Complains of pain in left lower quadrant Pain radiates to back and left lower quadrant. Neuro: Level of Consciousness is awake, alert, obeys commands, Oriented to person, place, time, situation. Cardiovascular: Capillary refill < 3 seconds Patient's skin is warm and dry. Respiratory: Airway is patent Respiratory effort is even, unlabored, Respiratory pattern is regular, symmetrical. GI: Bowel sounds present X 4 quads. Abd is soft and non tender. : Urine is cloudy, brownish. EENT: No signs and/or symptoms were reported regarding the EENT system. Derm: Skin is intact, is healthy with good turgor, Skin is pink, warm \\T\\ dry. normal. Musculoskeletal: Circulation, motion, and sensation intact. Capillary refill < 3 seconds. 13:20 Reassessment: Patient appears in no apparent distress at this time. Patient and/or mg2 family updated on plan of care and expected duration. Pain level reassessed. Patient is alert, oriented x 3, equal unlabored respirations, skin warm/dry/pink. Patient states feeling better. Vital Signs: 11:58 BP 130 / 77; Pulse 76; Resp 18; Temp 97.2; Pulse Ox 99% on R/A; Weight 81.65 kg (R); aj1 Height 5 ft. 11 in. (180.34 cm) (R); Pain 10/10; 12:30 BP 110 / 65; Pulse 70; Resp 18; Pulse Ox 100% on R/A; mg2 13:30 BP 103 / 76; Pulse 71; Resp 18; Temp 98; Pulse Ox 100% on R/A; mg2 11:58 Body Mass Index 25.10 (81.65 kg, 180.34 cm) aj1 ED Course: 11:54 Patient arrived in ED. mr 11:58 Triage completed. aj1 11:58 Arm band placed on Patient placed in an exam room. aj1 12:01 Denny Gupta BRAD is Primary Nurse. mg2 12:01 Raul Marinelli MD is Attending Physician. braeden 12:05 Inserted saline lock: 20 gauge in right antecubital area, using aseptic technique. mg2 Blood collected. 12:21 No provider procedures requiring assistance completed. mg2 12:23 Patient has correct armband on for positive identification. mg2 12:44 CT Stone Protocol In Process Unspecified. EDMS 13:24 Smita Cook MD is Referral Physician. braeden 13:50 IV discontinued, intact, bleeding controlled, No redness/swelling at site. Pressure mg2 dressing applied. Administered Medications: 12:20 Drug: Zofran 4 mg Route: IVP; Site: right antecubital; mg2 13:49 Follow up: Response: No adverse reaction mg2 12:20 Drug: TORadol 30 mg Route: IVP; Site: right antecubital; mg2 13:20 Follow up: Response: No adverse reaction; Marked relief of symptoms mg2 12:31 Drug: Rocephin 1 grams Route: IV; Rate: per protocol; Site: right antecubital; mg2 13:49 Follow up: Response: No adverse reaction; IV Status: Completed infusion mg2 13:12 Drug: Flomax 0.4 mg Route: PO; mg2 13:49 Follow up: Response: No adverse reaction mg2 13:48 Drug: morphine 4 mg Route: IVP; Site: right antecubital; mg2 13:49 Follow up: Response: No adverse reaction; Medication administered at discharge. mg2 13:48 Drug: Cipro 500 mg Route: PO; mg2 13:49 Follow up: Response: No adverse reaction; Medication administered at discharge. mg2 Outcome: 13:24 Discharge ordered by . braeden 13:51 Discharged to home ambulatory, with family. mg2 13:51 Condition: stable 13:51 Discharge instructions given to patient, family, Instructed on discharge instructions, follow up and referral plans. medication usage, Demonstrated understanding of instructions, follow-up care, medications, Prescriptions given X 4. 13:51 Patient left the ED. mg2 Signatures: Dispatcher [employer] Connie Baer, BRAD RN aj1 Raul Marinelli MD MD cha Rivera, Mary mr Denny Gupta RN RN mg2
[2019-12-13] MEDS ORDERED: CIPROFLOXACIN HCL 500 MG TAB ONE (13:36)
[2019-12-13] MEDS ORDERED: MORPHINE 4 MG/ML SYR ONE (13:37)
[2019-12-13 14:15] VITALS: O2SAT 100
[2019-12-13 14:16] VITALS: BP 103/76; TEMP 98
== END 2019-12-13 13:51 | disposition home or self-care (01) ==
LOC: ER 11:50
DX: N13.2 Hydronephrosis with renal and ureteral calculous obstruction (principal); F17.210 Nicotine dependence, cigarettes, uncomplicated
CPT/HCPCS: 96365; 87088; 85025; 87086; 80048; 36415; 80076; 81003; 83690; 76377; 74176; 96375; 99284; J0696; J2405